=== PATIENT | female | born 1930 | race Caucasian/White ===

== ENCOUNTER 2018-06-27 17:35 | Emergency (ER) | payer MEDICARE, OTHER ==
[2018-06-27] MEDS ORDERED: OCTYL 2-CYANOACRYLATE 1 EACH TP ONE ×2 (18:54→19:05)
== END 2018-06-27 19:40 | disposition home or self-care (01) ==
LOC: EDH 17:35
DX: S01.01XA Laceration without foreign body of scalp, initial encounter (principal); S50.812A Abrasion of left forearm, initial encounter; S50.312A Abrasion of left elbow, initial encounter; E11.9 Type 2 diabetes mellitus without complications; E78.5 Hyperlipidemia, unspecified; I10 Essential (primary) hypertension; Z88.8 Allergy status to other drugs, medicaments and biological substances; Z90.49 Acquired absence of other specified parts of digestive tract; Z96.659 Presence of unspecified artificial knee joint; W10.8XXA Fall (on) (from) other stairs and steps, initial encounter; Y93.89 Activity, other specified; Y92.098 Other place in other non-institutional residence as the place of occurrence of the external cause; Y99.8 Other external cause status
CPT/HCPCS: 12001; 70450